=== PATIENT | male | born 1965 | race Caucasian/White ===

== ENCOUNTER 2017-08-25 15:12 | Emergency (ER) | payer OTHER, MEDICARE, MEDICAID ==
[~2017-08-25] VITALS: Ht 180.3 cm; Wt 77.1 kg
[2017-08-25] MEDS ORDERED: NS IV 1000 ML 1,000 ML IV SCH (16:00)
[2017-08-25] MEDS ORDERED: KETOROLAC 30 MG/ML VIAL IVP ONE (16:00)
[2017-08-25] MEDS ORDERED: ONDANSETRON 4 MG/2 ML (SDV) Z0FRAN IVP ONE (16:00)
--- NOTE | 2017-08-25 16:00 | ED General ---
General Chief Complaint: Exposure Stated Complaint: SHAKING, CANT DRINK FLUIDS, COTTON MOUTH, DIZZY Source of Information: Patient Exam Limitations: No Limitations (she is) History of Present Illness Date Seen by Provider: Aug 25, 2017 Time Seen by Provider: 15:57 Initial Comments tto ER by private vehicle with reports of possible heat exhaustion. He is from [facility], here helping a friend jarett blair. They working indoors without ventilation or air conditioning all day today. hhe reports nausea, shaking, dizzy, sharp right-sided chest pain with breathing but otherwise the pain is not there. He did have a heart attack with one stent placed in [facility] 1 week ago. He is on aspirin and Plavix and has not missed any doses. He states this pain feels different than his heart attack did.. Timing/Duration: 1-3 Hours Severity: Moderate Associated Systoms: Headaches, Malaise, Nausea/Vomiting, Weakness Allergies and Home Medications Allergies Coded Allergies: codeine (Verified Allergy, Unknown, 08/25/17) Patient Home Medication List Home Medication List Reviewed: Yes Review of Systems Constitutional: see HPI, weakness EENTM: see HPI Respiratory: see HPI, other (right-sided sharp chest pain on deep breathing) Cardiovascular: no symptoms reported Genitourinary: no symptoms reported Musculoskeletal: no symptoms reported Skin: no symptoms reported Psychiatric/Neurological: No Symptoms Reported Hematologic/Lymphatic: No Symptoms Reported Immunological/Allergic: no symptoms reported Past Zkjwbme-Iubxri-Wsnjbl Hx Patient Social History Alcohol Use: Denies Use Recreational Drug Use: No Smoking Status: Former Smoker Former Smoker, Quit: Aug 04, 2017 Recent Foreign Travel: No Contact w/Someone Who Travel: No Physical Abuse: No Sexual Abuse: No Mistreated: No Fear: No Past Medical History Surgeries: Yes (NECK, L WRIST) Coronary Stent, Gallbladder, Orthopedic Respiratory: Yes COPD Cardiac: Yes Heart Attack, Hypertension Neurological: No Genitourinary: No Gastrointestinal: No Musculoskeletal: No Endocrine: No HEENT: No Cancer: No Psychosocial: No Nursing Suicide Risk Score: 0 Blood Disorders: No Physical Exam Vital Signs Vital Signs - First Documented 08/25/17 15:48 Temp 97.7 Pulse 68 Resp 16 B/P (MAP) 134/84 (101) Pulse Ox 99 Capillary Refill : Height, Weight, BMI Height: '" Weight: lbs. oz. kg; BMI Method: General Appearance: No Apparent Distress, WD/WN, Other (appears older than stated age) Eyes: Bilateral Eye Normal Inspection, Bilateral Eye PERRL, Bilateral Eye EOMI HEENT: PERRL/EOMI, TMs Normal Neck: Full Range of Motion, Normal Inspection, Non Tender Respiratory: Normal Breath Sounds, No Accessory Muscle Use, No Respiratory Distress Cardiovascular: Regular Rate, Rhythm, Normal Peripheral Pulses Gastrointestinal: Normal Bowel Sounds, Non Tender, Soft Extremity: Normal Capillary Refill, Normal Inspection, Normal Range of Motion Neurologic/Psychiatric: Alert, Oriented x3 Skin: Normal Color, Warm/Dry Progress/Results/Core Measures Suspected Sepsis SIRS Temperature: Pulse: Respiratory Rate: Laboratory Tests 08/25/17 15:43: White Blood Count 9.4 Blood Pressure / Mean: Laboratory Tests 08/25/17 15:43: Platelet Count 270 Results/Orders Lab Results Laboratory Tests Test 08/25/17 15:43 Range/Units White Blood Count 9.4 4.3-11.0 10^3/uL Red Blood Count 4.03 L 4.35-5.85 10^6/uL Hemoglobin 13.0 L 13.3-17.7 G/DL Hematocrit 38 L 40-54 % Mean Corpuscular Volume 94 80-99 FL Mean Corpuscular Hemoglobin 32 25-34 PG Mean Corpuscular Hemoglobin Concent 35 32-36 G/DL Red Cell Distribution Width 13.7 10.0-14.5 % Platelet Count 270 130-400 10^3/uL Mean Platelet Volume 10.2 7.4-10.4 FL Neutrophils (%) (Auto) 56 42-75 % Lymphocytes (%) (Auto) 33 12-44 % Monocytes (%) (Auto) 6 0-12 % Eosinophils (%) (Auto) 5 0-10 % Basophils (%) (Auto) 0 0-10 % Neutrophils # (Auto) 5.3 1.8-7.8 X 10^3 Lymphocytes # (Auto) 3.1 1.0-4.0 X 10^3 Monocytes # (Auto) 0.6 0.0-1.0 X 10^3 Eosinophils # (Auto) 0.5 H 0.0-0.3 10^3/uL Basophils # (Auto) 0.0 0.0-0.1 10^3/uL My Orders Orders - ALEKSANDRA OBNNER APRN Creatine Kinase (7/12/18 15:56) Cbc With Automated Diff (08/25/17 15:56) Comprehensive Metabolic Panel (08/25/17 15:56) Troponin I (08/25/17 15:56) Ekg Tracing (08/25/17 15:56) Continuous Ekg Monitoring (08/25/17 15:56) Chest Pa/Lat (2 View) (08/25/17 15:56) Iv Heplock-Insert (Order) (08/25/17 15:56) Ketorolac Injection (Toradol Injection) (08/25/17 16:00) Ns Iv 1000 Ml (Sodium Chloride 0.9%) (08/25/17 16:00) Ondansetron Injection (Zofran Injectio (08/25/17 16:00) Ua Culture If Indicated (08/25/17 16:06) Vital Signs/I&O 08/25/17 15:48 Temp 97.7 Pulse 68 Resp 16 B/P (MAP) 134/84 (101) Pulse Ox 99 Capillary Refill : Departure Communication (Admissions) 7010-patient informed RN he is feeling better now and would like to sign out. Impression Primary Impression: Left against medical advice Disposition: 07 AGAINST MEDICAL ADVICE Condition: Against Medical Advice Departure-Patient Inst. Referrals: JANA BONNER DO (PCP/Family) Primary Care Physician ALEKSANDRA BONNER APRN Aug 25, 2017 16:00
[2017-08-25] MEDS ORDERED: RT-ALBUINH (16:02)
[2017-08-25] MEDS ORDERED: METO50TA15 (16:02)
[2017-08-25] MEDS ORDERED: PROAIR (16:02)
[2017-08-25] MEDS ORDERED: ATOR80TA76 (16:02)
[2017-08-25] MEDS ORDERED: CODE118S4 (16:02)
[2017-08-25] MEDS ORDERED: METH4TAB10 (16:02)
[2017-08-25] MEDS ORDERED: CLOP75TA28 (16:02)
[2017-08-25] MEDS ORDERED: CEFU250T80 (16:02)
[2017-08-25 16:10] LABS: BASOPHILS % (AUTO) 0 % (0-10); EOSINOPHILS # (AUTO) 0.5 10^3/uL (0.0-0.3); EOSINOPHILS % (AUTO) 5 % (0-10); HEMATOCRIT 38 % (40-54); LYMPHOCYTES # (AUTO) 3.1 X 10^3 (1.0-4.0); LYMPHOCYTES % (AUTO) 33 % (12-44); MEAN CORPUSCULAR HEMOGLOBIN 32 PG (25-34); MEAN CORPUSCULAR HGB CONC 35 G/DL (32-36); MEAN CORPUSCULAR VOLUME 94 FL (80-99); MEAN PLATELET VOLUME 10.2 FL (7.4-10.4); MONOCYTES # (AUTO) 0.6 X 10^3 (0.0-1.0); MONOCYTES % (AUTO) 6 % (0-12); NEUTROPHILS # (AUTO) 5.3 X 10^3 (1.8-7.8); NEUTROPHILS % (AUTO) 56 % (42-75); PLATELET COUNT 270 10^3/uL (130-400); RED BLOOD COUNT 4.03 10^6/uL (4.35-5.85); RED CELL DISTRIBUTION WIDTH 13.7 % (10.0-14.5); WHITE BLOOD COUNT 9.4 10^3/uL (4.3-11.0)
[2017-08-25 16:25] LABS: ALANINE AMINOTRANSFERASE 16 U/L (0-55); ALBUMIN 4.1 GM/DL (3.2-4.5); ALKALINE PHOSPHATASE 100 U/L (40-136); BILIRUBIN,TOTAL 0.5 MG/DL (0.1-1.0); CALCIUM 8.8 MG/DL (8.5-10.1); CARBON DIOXIDE 25 MMOL/L (21-32); CHLORIDE 107 MMOL/L (98-107); CREATINE KINASE 287 U/L (30-200); CREATININE SERUM 1.13 MG/DL (0.60-1.30); GFR ESTIMATED > 60; GLUCOSE 98 MG/DL (70-105); POTASSIUM 4.1 MMOL/L (3.6-5.0); SODIUM 140 MMOL/L (135-145); TOTAL PROTEIN 6.5 GM/DL (6.4-8.2)
[2017-08-25 16:27] VITALS: BP 123/78
[2017-08-25 17:24] LABS: BUN/CREATININE RATIO 18
== END 2017-08-25 16:27 | disposition left against medical advice (07) ==
LOC: ER 15:15
DX: R42 Dizziness and giddiness (principal); R25.1 Tremor, unspecified; R11.2 Nausea with vomiting, unspecified; R51 Headache; R53.81 Other malaise; R07.1 Chest pain on breathing; J44.9 Chronic obstructive pulmonary disease, unspecified; I10 Essential (primary) hypertension; I25.2 Old myocardial infarction; Z95.5 Presence of coronary angioplasty implant and graft; Z88.5 Allergy status to narcotic agent; Z87.891 Personal history of nicotine dependence
CPT/HCPCS: 36415; 80053; 82550; 84484; 85025; 99281